=== PATIENT | male | born 1945 | race Caucasian/White ===

== ENCOUNTER 2018-10-29 21:03 | Emergency (ER) | payer MEDICARE, BC ==
[2018-10-29] MEDS ORDERED: Indomethacin 25 MG Cap PO ONE (21:17)
--- NOTE | 2018-10-29 21:20 | EDM.PDOC ---
ED HPI GENERAL MEDICAL PROBLEM - General Stated Complaint: GOUT LT FOOT Time Seen by Provider: 10/29/18 21:03 Source of Information: Reports: Patient History Limitations: Reports: No Limitations - History of Present Illness INITIAL COMMENTS - FREE TEXT/NARRATIVE: 73 y.o.w.m came from [facility] [place] to [place] and ran out of his "gout meds" His left 2 nd toe is swollen, he denies trauma, refuses any kind of work up. No N/V/D no F/ C no trauma to his toes. BP 151/83 Temp 36.1 Pulse 62 RR 18 Pulse ox 96% on RA Onset Date: 10/29/18 Onset Time: 08:00 Duration: Hour(s): Location: Reports: Lower Extremity, Right (foot) Quality: Reports: Dull, Same as Previous Episode Severity: Moderate Improves with: Reports: Medication Worsens with: Reports: Movement Context: Reports: Other (H/O gout) Associated Symptoms: Reports: No Other Symptoms Left Foot Pain Score (Numeric/FACES): 5 - Related Data Allergies Allergy/AdvReac Type Severity Reaction Status Date / Time No Known Allergies Allergy Verified 10/29/18 21:41 Home Meds: Home Meds Indomethacin 25 mg PO TID PRN #9 capsule 10/29/18 [Rx] Review of Systems - Review of Systems Review Of Systems: See Below Constitutional: Reports: No Symptoms Eyes: Reports: No Symptoms Ears: Reports: No Symptoms Nose: Reports: No Symptoms Mouth/Throat: Reports: No Symptoms Respiratory: Reports: No Symptoms Cardiovascular: Reports: No Symptoms GI/Abdominal: Reports: No Symptoms Genitourinary: Reports: No Symptoms Musculoskeletal: Reports: No Symptoms Skin: Reports: No Symptoms Neurological: Reports: No Symptoms Psychiatric: Reports: No Symptoms ED EXAM, GENERAL - Physical Exam Exam: See Below Exam Limited By: No Limitations General Appearance: Alert, WD/WN, Mild Distress Eye Exam: Bilateral Eye: Normal Inspection Ears: Normal External Exam Ear Exam: Bilateral Ear: Auricle Normal Nose: Normal Inspection, Normal Mucosa Throat/Mouth: Normal Lips, Normal Voice, No Airway Compromise Head: Atraumatic, Normocephalic Neck: Normal Inspection, Supple, Non-Tender, Full Range of Motion Respiratory/Chest: No Respiratory Distress, Lungs Clear, Normal Breath Sounds Cardiovascular: Normal Peripheral Pulses, Regular Rate, Rhythm, No Edema Peripheral Pulses: 1+: Brachial (R) GI/Abdominal: Normal Bowel Sounds (Male) Exam: Deferred Rectal (Males) Exam: Deferred Back Exam: Normal Inspection, Full Range of Motion Extremities: Redness (tender swollen 2nd left toe, angulated) Neurological: Alert, Oriented, CN II-XII Intact, Normal Cognition Psychiatric: Normal Affect, Normal Mood Skin Exam: Warm, Dry, Intact, Normal Color, No Rash Lymphatic: No Adenopathy Course - Vital Signs Text/Narrative:: 73 y.o.w.m came from [facility] [place] to [place] and ran out of his "gout meds" His left 2 nd toe is swollen, he denies trauma, refuses any kind of work up. No N/V/D no F/ C no trauma to his toes. BP 151/83 Temp 36.1 Pulse 62 RR 18 Pulse ox 96% on RA PE: WNWD left 2nd toe pain H/O gout, refuses any kind of W/U, want meds refill only Impression: H/O gout DDx: Trauma, cellulitis Tx: Pt refused any w/u, he is [place] and ran out of indomethacin Reexam: Pt was stable in the ED Plan: D/C with instructions Last Recorded V/S: Last Vital Signs Temp 36.5 C 10/29/18 21:03 Pulse 62 10/29/18 21:03 Resp 18 10/29/18 21:03 BP 151/83 H 10/29/18 21:03 Pulse Ox 96 10/29/18 21:03 - Orders/Labs/Meds Meds: Medications Discontinued Medications Generic Name Dose Route Start Last Admin Trade Name Myles PRN Reason Stop Dose Admin Indomethacin 25 mg 10/29/18 21:17 10/29/18 21:41 Indocin PO 10/29/18 21:18 25 mg ONETIME ONE Administration Departure - Departure Time of Disposition: 21:19 Disposition: Home, Self-Care 01 Condition: Good Clinical Impression: Medication refill Gout Qualifiers: Gout site: toe Encounter type: subsequent encounter Chronicity: unspecified Laterality: left - Discharge Information Prescriptions: Indomethacin 25 mg PO TID PRN #9 capsule PRN Reason: gout Instructions: Gout, [id number], Indomethacin capsules Referrals: PCP,None [Primary Care Provider] - Forms: ED Department Discharge Additional Instructions: Please f/u closely with your PMD, please come back if your symptoms get worse acutely
== END 2018-10-29 21:45 | disposition home or self-care (01) ==
LOC: FB.ED 21:03
DX: M10.9 Gout, unspecified (principal); Z76.0 Encounter for issue of repeat prescription
CPT/HCPCS: 99282; A9270; 99283